=== PATIENT | female | born 1935 | race Caucasian/White ===

== ENCOUNTER → 2018-11-23 | Outpatient (CLI) | payer OTHER ==
[~2018-11-23] VITALS: Ht 160 cm; Wt 74.8 kg
[~2018-11-23] MED LIST: ACETAMINOPHEN325 M1 PO; ALENDRONATE; APAP500 PO; ASPIRIN EC81 M1 PO; ASPIRIN325 PO; CALCIUM 500 +1 EAC5 PO; CARDIZEM CD120 MG PO; CARTIA XT240 M1 PO; COUMADIN 5 MG TA5 M1 PO; CYCLOBENZAPRINE5 MG PO; DILTIAZEM ER120 M1 PO; FISH OIL 1,2001 EAC3 PO; FOSAMAX 70 MG T70 M1 PO; FOSAMAX 70 MG T70 MG PO; LEVOTHROID150 MC1 PO; LIPITOR 20 MG T20 M1 PO; LOSARTAN POTAS100 MG PO; LOVENOX PO; MECLIZINE; MECLIZINE 25 MG25 M1 PO; MOTION RELIEF25 MG PO; ODORLESS GARLI500 MG PO; OXYBUTYNIN 5 MG5 M2 PO; RYTHMOL SR325 MG PO; SYNTHROID; SYNTHROID125 MCG PO; SYNTHROID137 MCG PO; SYNTHROID150 MCG PO; VALIUM5 MG PO; VITAMIN D1000 UNI1 PO; VITAMIN D400 UNI1 PO; VITAMINC500 PO; ZOCOR 20 MG TAB20 M1 PO; [UNRECOGNIZED DRUG - CODE] PO
--- NOTE | ~2018-11-23 | P ---
[facility] [place] [address] PROCEDURE REPORT Name: RAQUEL SIERRA Room #: REG Rosa Isela Joseph.#: [id number] Admission: 11/23/18 Attend Phys: Jose C Talbert Discharge: Date of : 37 Report #: [id number] THIS REPORT FOR: //name// CC: Jose C Suarez MD DATE OF SERVICE: 11/23/2018 PROCEDURE PERFORMED: Colonoscopy with polypectomies. HISTORY OF PRESENT ILLNESS: The patient is an 83-year-old female who was seen in the office for her first visit on 11/01/2018 with complaints in change in stools as well as Hemoccult positive stool. The patient has never had a colonoscopy before. She had noticed mucus-type stools in the beginning of August, which has actually improved. She does report a small amount of bright red blood per rectum at times. She takes aspirin on a regular basis. An upper endoscopy was performed today, which showed mild gastritis and hiatal hernia, but otherwise negative. Plan is for colonoscopy. DESCRIPTION OF PROCEDURE: The risks and benefits of the procedure were explained to the patient, those risks including but not limited to bleeding, perforation and the risk of sedation. She understood these risks and gave informed consent. Sedation was given using propofol per anesthesia. Next, a digital rectal exam was initially performed, which was normal. Next, using a standard Olympus colonoscope, the scope was placed in the patient's anus and advanced under direct vision to the cecum. The overall prep was excellent. In the cecum, there was a 5-mm sessile polyp. This was removed by snare cautery. A single diverticulum was also noted, otherwise normal. The ileocecal valve was normal. In the ascending colon, a 4-mm sessile polyp was noted and removed with cold forceps. Also, random colon biopsies were obtained to rule out the possibility of microscopic colitis. In the transverse colon, there were a total of 3 polyps that were noted. These range in size from 6 mm to 1 cm. These all 3 were partially pedunculated and all removed by snare cautery. One showed a possible small visible vessel. No evidence of active bleeding; however, a single endoclip was placed without difficulty. Multiple diverticula were noted in the descending and sigmoid colon, no evidence of inflammation or bleeding. The rectal mucosa was normal. On retroflexion, small nonbleeding internal hemorrhoids were noted. The scope was then withdrawn and the procedure terminated. The patient tolerated the procedure well. IMPRESSION: 1. Multiple polyps as described above. 2. Left-sided diverticulosis without inflammation. 3. Internal hemorrhoids. No evidence of bleeding. 4. Otherwise, normal colonoscopy. [address] [address] PROCEDURE REPORT Name: RAQUEL SIERRA Room #: REG SAMUEL Poe#: [id number] Admission: 11/23/18 Attend Phys: Jose C Talbert Discharge: Date of : 37 Report #: [id number] RECOMMENDATIONS: 1. Await biopsy results. 2. Hemoccult positive stool may have been secondary to large polyps that were removed today or possible internal hemorrhoids. No evidence of bleeding was noted throughout on either EGD or colonoscopy today. At this point, we would observe the patient post-procedure. Thank you for allowing me to participate in her care. By: [id number] Jose C El MD /nt
--- NOTE | ~2018-11-23 | P ---
[facility] [place] [address] PROCEDURE REPORT Name: RAQUEL SIERRA Room #: REG Rosa Isela Joseph.#: [id number] Admission: 11/23/18 Attend Phys: Jos eC Talbert Discharge: Date of : 37 Report #: [id number] THIS REPORT FOR: //name// CC: Jose C Suarez MD DATE OF SERVICE: 11/23/2018 PROCEDURE PERFORMED: Upper endoscopy with biopsies. HISTORY OF PRESENT ILLNESS: The patient is an 83-year-old female who was seen in the office recently for change in stools, described as mucus. Also Hemoccult positive stool. The patient has never had an endoscopy in the past. She was taking aspirin on a regular basis. We therefore discussed proceeding with an upper endoscopy and colonoscopy today. DESCRIPTION OF PROCEDURE: The risks and benefits of the procedure were explained to the patient, those risks including but not limited to bleeding, perforation, the risk of sedation. She understood these risks and gave informed consent. Sedation was given using propofol per anesthesia. Next, using a standard Olympus upper endoscope, the scope was placed in the patient's mouth and advanced under direct vision through the esophagus, stomach and into the second portion of the duodenum. The esophagus was somewhat tortuous, but otherwise normal. The GE junction was normal. No evidence of esophagitis. Upon entering the stomach, a medium-sized hiatal hernia was noted. There was a mild diffuse gastritis. No evidence of ulcerations or erosions. No evidence of blood throughout the exam today. Biopsies were obtained to rule out H. pylori. The pylorus was normal and patent. The duodenal bulb, first and second portion were all normal. Random biopsies were also obtained to rule out the possibility of celiac sprue. The scope was then withdrawn and the procedure terminated. The patient tolerated the procedure well. IMPRESSION: 1. Medium sized hiatal hernia. 2. Mild gastritis. 3. Otherwise, normal upper endoscopy. RECOMMENDATIONS: 1. Await biopsy results. 2. We will proceed with colonoscopy today. [facility] [address] [place] [address] PROCEDURE REPORT Name: FRAN BOYERH ANN Room #: REG SAMUEL Poe#: [id number] Admission: 11/23/18 Attend Phys: Jose C Talbert Discharge: Date of : 37 Report #: [id number] Thank you for allowing me to participate in her care. By: [id number] Jose C El MD /nt
--- NOTE | 2018-11-24 19:06 | PATH ---
[facility] [address] [address] PATHOLOGY RPT PROCEDURE Name: RAQUEL MCDANIEL Room #: REG SAMUEL Jake.#: [id number] Admission: 11/23/18 Date of : 37 Discharge: Report #: [id number] Path Case #: [id number] [facility] Accession Number: [id number] . 01 Material submitted: . PART A: duodenum - BX OF DUODENUM R/O SPRUE PART B: stomach - BX OF GASTRIC R/O H. PYLORI PART C: cecum - POLYP AT CECUM PART D: colon - RANDOM BX COLON R/O MICROSCOPIC COLITIS PART E: colon - BX OF ASCENDING COLON POLYP. Modifiers: ascending PART F: colon - POLYP OF TRANSVERSE COLON X3. Modifiers: transverse . 01 Clinical history: . Change of bowel habits, hiatal hernia, gastritis, diverticulosis, colon polyps, hemorrhoid A. Rule out sprue B. Rule out H. pylori B. Rule out microscopic colitis . 02 Diagnosis: A. Small bowel, duodenum, biopsy: - Mild chronic inflammation. - Normal villous architecture. . B. Stomach, biopsy: - Chronic superficial gastritis, mild. - No evidence of Helicobacter pylori on immunoperoxidase stain. . C. Colon, cecum, biopsy: - Hyperplastic polyp. . D. Colon, random biopsies: - Colonic mucosa with no pathologic diagnosis. . E. Colon, ascending, biopsy: - Adenomatous polyp. . F. Colon, transverse, biopsy: - Adenomatous polyps, two. - Hyperplastic polyp, one. . (SKM:mmjessica; 11/24/2018) [facility]/11/24/2018 . 02 Electronically signed: . Tahir Trivedi MD, Pathologist NPI- [id number] [address] [address] PATHOLOGY RPT PROCEDURE Name: RAQUEL MCDANIEL ANN Room #: REG CL Jake.#: [id number] Admission: 11/23/18 Date of : 37 Discharge: Report #: [id number] Path Case #: [id number] . 01 Gross description: . A. The specimen is received in formalin, labeled "Raquel Mcdaniel BX of duodenum ", are three irregular fragments of ibanez soft tissue measuring 0.5 x 0.4 x 0.1 cm in aggregate. Entirely submitted in A1. . B. The specimen is received in formalin, labeled " Raquel Mcdaniel, BX of gastric", are four irregular fragments of ibanez soft tissue measuring 0.7 x 0.6 x 0.2 cm in aggregate. Entirely submitted in B1. . C. The specimen is received in formalin, labeled " roldSamarah, polyp at cecum", are three fragments of ibanez soft tissue measuring 0.7 x 0.5 x 0.2 cm in aggregate. Entirely submitted in C1. . D. The specimen is received in formalin, labeled " rold Raquel, random BX colon", are four irregular fragments of ibanez soft tissue measuring 1.0 x 0.5 x 0.2 cm in aggregate. Entirely submitted in D1. . E. The specimen is received in formalin, labeled " rold Raquel, biopsy of ascending colon polyp", are three irregular fragments of ibanez soft tissue measuring 0.4 x 0.2 x 0.1 cm in aggregate. Entirely submitted in E1. . F. The specimen is received in formalin, labeled " rold, Raquel, polyp of transverse colon X3", are three ibanez rubbery sessile polyps measuring 0.4 x 0.2 x 0.1 cm, bisected (F1), 1.1 x 0.7 x 0.5 cm, serially sectioned (F2) and 1.4 x 0.7 x 0.7 cm, serially sectioned (F3). The margin is inked black. The specimen is entirely submitted in F1-F3. ([facility]; 11/23/2018) [facility]S . 02 Pathologist provided ICD-10: K29.80, K29.50, K63.5, D12.2, D12.3 . 02 CPT . 873059, 125295, 571642, [id number], 386824, 144349, [id number] Specimen Comment: A courtesy copy of this report has been sent to Specimen Comment: [phone], . Specimen Comment: Report sent to and Performed at: [address], [place], [place] [id number] MD Eliazar Cotto MD Phone: [phone] Performed at: [address] [id number] MD Fouzia Samson MD Phone: [phone]
== END | disposition home or self-care (01) ==
LOC: GI 08:55
DX: D12.2 Benign neoplasm of ascending colon (principal); D12.3 Benign neoplasm of transverse colon; K63.5 Polyp of colon; K57.30 Diverticulosis of large intestine without perforation or abscess without bleeding; K64.8 Other hemorrhoids; K29.50 Unspecified chronic gastritis without bleeding; K44.9 Diaphragmatic hernia without obstruction or gangrene; K29.80 Duodenitis without bleeding; I10 Essential (primary) hypertension; E78.00 Pure hypercholesterolemia, unspecified; E03.9 Hypothyroidism, unspecified; Z90.49 Acquired absence of other specified parts of digestive tract; Z79.82 Long term (current) use of aspirin; Z88.8 Allergy status to other drugs, medicaments and biological substances; Z79.899 Other long term (current) drug therapy
CPT/HCPCS: 62110; 62900